=== PATIENT | male | born 1950 ===

== ENCOUNTER 2017-03-19 13:25 | Inpatient (IN) | payer MEDICAID, OTHER ==
[~2017-03-19] VITALS: Ht 185.4 cm; Wt 110.8 kg
[2017-03-19] MEDS ORDERED: SODIUM CHLORIDE 0.9% 1,000 ML IV ONE (13:43)
[2017-03-19 14:09] LABS: Basophils # (auto) 0 uL; Basophils % (auto) 0.5 % (0.0-2.0); CONDITION Y; Eosinophils # (auto) 0.1 uL; Hematocrit 41.1 % (41.0-53.0); Hemoglobin 13.7 g/dL (13.5-17.5); Lymphocytes % (auto) 13.2 % (10.0-50.0); Mean Corpuscular Hgb Conc. 33.5 g/dL (32.0-36.0); Mean Corpuscular Volume 86.6 fL (80.0-100.0); Mean Platelet Volume 8.5 fL (7.4-10.4); Monocytes # (auto) 0.4 uL; Monocytes % (auto) 4.9 % (0.0-12.0); Neutrophils # (auto) 6.3 uL; Neutrophils % (auto) 80.4 % (37.0-80.0); Platelet Count (auto) 235 10^3/uL (140-450); Red Cell Distribution Width 15.5 % (11.6-16.0); White Blood Cell 7.8 10^3/uL (4.4-10.8)
[2017-03-19 14:22] LABS: INR 1.02 (0.9-1.15); Partial Thromboplastin Time 24.8 sec (22.64-33.71); Prothrombin Time 11.1 sec (9.37-12.3)
[2017-03-19 14:30] LABS: Albumin 3.6 g/dL (3.4-5.0); Anion Gap 13 (5-15); Aspartate Aminotransferase 22 U/L (15-37); BUN/Creatinine Ratio 19.2; Blood Urea Nitrogen 19 mg/dL (7-18); Calcium 8.1 mg/dL (8.5-10.1); Carbon Dioxide 19 mmol/L (21-32); Chloride 112 mmol/L (98-107); GFR African American 98 mL/min; GFR Non-African American 81 mL/min; Glucose 133 mg/dL (74-106); Potassium 3.3 mmol/L (3.5-5.1); Sodium 144 mmol/L (136-145)
[2017-03-19 14:35] LABS: Alkaline Phosphatase 68 U/L (45-117); Bilirubin, Total 0.5 mg/dL (0.2-1.0); Total Protein 7.1 g/dL (6.4-8.2)
[2017-03-19 14:37] LABS: B-Type Natriuretic Peptide 63.79 pg/mL (0-100)
[2017-03-19 14:48] LABS: Temperature: 24.8 C (20.0-25.0)
[2017-03-19] MEDS ORDERED: MORPHINE SULF INJ 2 MG/ML SYRINGE 1ML IV PRN ×2 (16:15)
[2017-03-19] MEDS ORDERED: TEMAZEPAM 15 MG CAP PO PRN (16:15)
[2017-03-19] MEDS ORDERED: NITROGLYCERIN 0.4 MG SL TAB SL PRN (16:15)
[2017-03-19] MEDS ORDERED: HYDROcodone-ACET 5/325MG TAB PO PRN (16:15)
[2017-03-19] MEDS ORDERED: ACETAMINOPHEN 500 MG TAB PO PRN (16:15)
[2017-03-19] MEDS ORDERED: POTASSIUM CHL 20 Meq TABLET PO ONE (16:15)
[2017-03-19] MEDS ORDERED: LORazepam 0.5 MG TAB PO PRN (16:15)
[2017-03-19] MEDS ORDERED: PROMETHAZINE HCL 25 MG/ML 1ML IV PRN (16:15)
[2017-03-19] MEDS ORDERED: DEXTROSE (50%) 50ML SYRG IV PRN (16:15)
[2017-03-19] MEDS ORDERED: LACTULOSE 20Gm/30ML SOLN PO PRN (16:15)
[2017-03-19] MEDS: ENOXAPARIN SOD 40 MG/0.4 ML SYRINGE SC SCH (16:20)
[2017-03-19] MEDS ORDERED: chlordiazePOXIDE HCL 25 MG CAP PO PRN (16:30)
[2017-03-19] MEDS ORDERED: THIAMINE HCL 100 MG/ML 2ML VIAL IV ONE (16:30)
[2017-03-19] MEDS: ACCU-CHEK COMFORT CURVE STRIP VI SCH (16:31)
[2017-03-19] MEDS: PANTOPRAZOLE 40 MG TAB PO SCH (16:34)
[2017-03-19 16:45] LABS: Cholesterol 175 mg/dL (< 200); HDL Cholesterol 71 mg/dL (40-59); LDL Cholesterol 95 mg/dL (< 100); Triglycerides 92 mg/dL (< 150)
[2017-03-19 17:03] LABS: Temperature: 21.3 C (20.0-25.0)
[2017-03-19 17:33] LABS: Urine Bilirubin Negative (Negative); Urine Blood Negative /uL (Negative); Urine Color Yellow (Yellow); Urine Glucose TRACE mg/dL (Normal); Urine Ketone 2+ (Negative); Urine Mucus FEW (None Seen); Urine Nitrite Negative (Negative); Urine RBC <1 /hpf (0 - 3); Urine Urobilinogen Normal (Negative)
[2017-03-19] MEDS: chlordiazePOXIDE HCL 5 MG CAP PO SCH (18:00)
[2017-03-19 18:27] VITALS: BP 179/91
[2017-03-19] MEDS ORDERED: OMEP20CA74 PO (18:44)
[2017-03-19] MEDS ORDERED: LORazepam 2MG/ML-1ML VIAL IV PRN (20:15)
[2017-03-19 21:36] VITALS: BP 158/84
[2017-03-19] MEDS ORDERED: ATORVASTATIN 20 MG TAB PO SCH (22:00)
[2017-03-20 05:00] VITALS: BP 150/90
[2017-03-20] MEDS: chlordiazePOXIDE HCL 5 MG CAP PO SCH ×5 (05:44→18:00)
[2017-03-20] MEDS: ACCU-CHEK COMFORT CURVE STRIP VI SCH ×4 (06:23→18:00)
[2017-03-20 07:56] VITALS: BP 155/96
[2017-03-20] MEDS: ENOXAPARIN SOD 40 MG/0.4 ML SYRINGE SC SCH (09:41)
[2017-03-20] MEDS: PANTOPRAZOLE 40 MG TAB PO SCH (09:41)
[2017-03-20] MEDS ORDERED: ASPirin 81 mg TAB PO SCH (10:00)
[2017-03-20] MEDS ORDERED: THIAMINE HCL 100 MG/ML 2ML VIAL IV SCH (10:00)
[2017-03-20 12:00] VITALS: BP 152/86
[2017-03-20 17:28] VITALS: BP 152/86
== END 2017-03-20 17:45 | disposition home or self-care (01) | DRG 312 ==
LOC: ER 13:34 → TELE 13:35 → TELE-WESTW 18:08
PROVIDERS: ADMIT Internal Medicine; ATTEND Internal Medicine
DX: R55 Syncope and collapse (principal); I10 Essential (primary) hypertension; E87.6 Hypokalemia; K21.9 Gastro-esophageal reflux disease without esophagitis; E66.9 Obesity, unspecified; Z82.49 Family history of ischemic heart disease and other diseases of the circulatory system; Z82.3 Family history of stroke; Z68.32 Body mass index [BMI] 32.0-32.9, adult; Z88.0 Allergy status to penicillin; Z79.82 Long term (current) use of aspirin; Z79.899 Other long term (current) drug therapy
CPT/HCPCS: 36415; 70450; 70551; 71010; 80053; 80061; 80307; 81001; 82550; 82607; 82746; 82962; 83036; 83880; 84443; 84484; 85025; 85610; 85652; 85730; 93306; 93886; 94761; 96360